=== PATIENT | female | born 1990 ===

== ENCOUNTER 2017-08-31 17:14 | Emergency (ER) | payer MEDICAID ==
[2017-08-31 17:14] VITALS: BMI 38.9
[2017-08-31 17:53] VITALS: BP 107/77; PULSE 60; RESP 16; TEMP 97.9; O2SAT 96
--- NOTE | 2017-08-31 18:56 | ED PDOC ---
Arrival/HPI - General Chief Complaint: Lower Extremity Problem/Injury Time Seen by Provider: 08/31/17 18:30 Historian: Patient - History of Present Illness Time/Duration: Other (3 days) Symptom Onset: Sudden Symptom Course: Improving Severity Level: Severe Associated Symptoms (Text): 08/31/17 18:53 Patient reports that 3 days prior to arrival she was making a plate of Thanksgiving leftovers when her arms (both) suddenly became weak and she dropped the plate to the floor. Her legs (both) then became weak and she fell to the floor. She is unclear how long this lasted floor. She denies any injury or trauma. She reports that her boyfriend was staying with her for the last 3 days and she did not want to leave him and that is why she came to the hospital today. Symptoms have not recurred. No headache dizziness or lightheadedness. No numbness tingling or paresthesias. She does not feel weak at this time. She has no pain. No chest pain or palpitations. Patient is mentally challenged. She denies any depression. Denies suicidal or homicidal ideation. No fever or chills. This has never occurred previously. Past Medical History - Past History Past History: No Previous - Infectious Disease Hx of Infectious Diseases: None - Tetanus Immunization Tetanus Immunization: Unknown - Past Medical History Past Medical History: No Previous - Cardiac Hx Cardiac Disorders: No - Pulmonary Hx Respiratory Disorders: No - Neurological Hx Neurological Disorder: Yes Other/Comment: cerebral palsy - HEENT Hx HEENT Disorder: No - Renal Hx Renal Disorder: No - Endocrine/Metabolic Hx Endocrine Disorders: No - Hematological/Oncological Hx Blood Disorders: No - Integumentary Hx Dermatological Disorder: No - Musculoskeletal/Rheumatological Hx Musculoskeletal Disorders: No - Gastrointestinal Hx Gastrointestinal Disorders: Yes Hx Gall Bladder Disease: Yes (Gallstones) - Genitourinary/Gynecological Hx Genitourinary Disorders: No - Psychiatric Hx Depression: Yes Hx Substance Use: No - Past Surgical History Past Surgical History: No Previous - Surgical History Hx Cholecystectomy: Yes Hx Dilation and Curettage: Yes - Anesthesia Hx Anesthesia: Yes Hx Anesthesia Reactions: No Hx Malignant Hyperthermia: No - Suicidal Assessment Feels Threatened In Home Enviroment: No Family/Social History - Physician Review Nursing Documentation Reviewed: Yes Family/Social History: Unknown Family HX Smoking Status: Light Smoker < 10 Cigarettes Daily Hx Alcohol Use: Yes (occasionally) Hx Substance Use: No Hx Substance Use Treatment: No Allergies/Home Meds Allergies/Adverse Reactions: Allergies No Known Allergies Allergy (Verified 08/31/17 17:53) Home Medications: Home Meds Medication Instructions Recorded Confirmed No Known Home Med 08/31/17 08/31/17 Review of Systems - Physician Review All systems were reviewed & negative as marked: Yes - Review of Systems Constitutional: Normal Respiratory: Normal Cardiovascular: Normal Gastrointestinal: Normal Genitourinary Female: Normal Neurological: Normal. absent: Headache, Dizziness, Focal Weakness, Gait Changes , Speech Changes, Facial Droop, Disequilibrium, Seizure Physical Exam Vital Signs Temp Pulse Resp BP Pulse Ox 08/31/17 17:48 97.9 F 60 16 107/77 96 Temperature: Afebrile Blood Pressure: Normal Pulse: Regular Respiratory Rate: Normal Appearance: Positive for: Well-Appearing, Non-Toxic, Comfortable, Other (Obese) Pain Distress: None Mental Status: Positive for: Alert and Oriented X 3 - Systems Exam Head: Present: Atraumatic, Normocephalic Pupils: Present: PERRL Extroacular Muscles: Present: EOMI Conjunctiva: Present: Normal Respiratory/Chest: Present: Clear to Auscultation, Good Air Exchange. No: Respiratory Distress, Accessory Muscle Use Cardiovascular: Present: Regular Rate and Rhythm, Normal S1, S2. No: Murmurs Abdomen: Present: Normal Bowel Sounds. No: Tenderness, Distention, Peritoneal Signs Upper Extremity: Present: Normal Inspection. No: Cyanosis, Edema Lower Extremity: Present: Normal Inspection. No: Edema Neurological: Present: GCS=15, CN II-XII Intact, Speech Normal, Motor Func Grossly Intact, Normal Sensory Function, Normal Cerebellar Funct, Gait Normal Skin: Present: Warm, Dry, Normal Color. No: Rashes Psychiatric: Present: Alert, Oriented x 3, Normal Insight, Normal Concentration Medical Decision Making ED Course and Treatment: 08/31/17 18:58 Discussed in detail with patient that she should follow-up with her PMD for these symptoms and follow up in the emergency department immediately if they recur. Disposition/Present on Arrival - Present on Arrival Any Indicators Present on Arrival: No History of DVT/PE: No History of Uncontrolled Diabetes: No Urinary Catheter: No History of Decub. Ulcer: No History Surgical Site Infection Following: None - Disposition Have Diagnosis and Disposition been Completed?: Yes Diagnosis: Weakness Disposition: HOME/ ROUTINE Disposition Time: 18:58 Patient Plan: Discharge Condition: GOOD Discharge Instructions (ExitCare): Weakness (ED) Referrals: Sheryl Slater MD [Primary Care Provider] - Follow up with primary Forms: [employer] (Bermudian)
== END 2017-08-31 19:16 | disposition home or self-care (01) ==
LOC: ED 17:14
DX: R53.1 Weakness (principal); F17.210 Nicotine dependence, cigarettes, uncomplicated

== ENCOUNTER 2018-05-24 18:39 | Emergency (ER) | payer MEDICAID ==
[2018-05-24 18:40] VITALS: BMI 38.9
[2018-05-24 20:28] VITALS: TEMP 98.3
--- NOTE | 2018-05-24 21:17 | ED PDOC ---
Arrival/HPI - General Chief Complaint: Lower Extremity Problem/Injury Time Seen by Provider: 05/24/18 20:41 Historian: Patient - History of Present Illness Narrative History of Present Illness (Text): 05/24/18 20:40 A 27 year old female, whose past medical history includes cerebral palsy , presents to the emergency department complaining of headache and left leg numbness for the past few days. Patient reports associated back pain, pain on back of left knee upon movement and numbness to left leg when standing . Patient denies any fever, chills, chest pain, shortness of breath, nausea, vomiting, diarrhea, urinary symptoms, back pain, neck pain, dizziness, or any other complaints. Time/Duration: Other (past few days) Symptom Onset: Gradual Symptom Course: Unchanged Activities at Onset: Light Context: Home Past Medical History - Provider Review Nursing Documentation Reviewed: Yes - Past History Past History: No Previous - Infectious Disease Hx of Infectious Diseases: None - Tetanus Immunization Tetanus Immunization: Unknown - Past Medical History Past Medical History: No Previous - Cardiac Hx Cardiac Disorders: No - Pulmonary Hx Respiratory Disorders: No - Neurological Hx Neurological Disorder: Yes Other/Comment: cerebral palsy - HEENT Hx HEENT Disorder: No - Renal Hx Renal Disorder: No - Endocrine/Metabolic Hx Endocrine Disorders: No - Hematological/Oncological Hx Blood Disorders: No - Integumentary Hx Dermatological Disorder: No - Musculoskeletal/Rheumatological Hx Musculoskeletal Disorders: No - Gastrointestinal Hx Gastrointestinal Disorders: Yes Hx Gall Bladder Disease: Yes (Gallstones) - Genitourinary/Gynecological Hx Genitourinary Disorders: No - Psychiatric Hx Psychophysiologic Disorder: Yes Hx Depression: Yes Hx Substance Use: No - Past Surgical History Past Surgical History: No Previous - Surgical History Hx Cholecystectomy: Yes Hx Dilation and Curettage: Yes - Anesthesia Hx Anesthesia: Yes Hx Anesthesia Reactions: No Hx Malignant Hyperthermia: No - Suicidal Assessment Feels Threatened In Home Enviroment: No Family/Social History - Physician Review Nursing Documentation Reviewed: Yes Family/Social History: Unknown Family HX Smoking Status: Light Smoker < 10 Cigarettes Daily Hx Alcohol Use: Yes Frequency of alcohol use: Socially Hx Substance Use: No Hx Substance Use Treatment: No Allergies/Home Meds Allergies/Adverse Reactions: Allergies No Known Allergies Allergy (Verified 05/24/18 19:44) Home Medications: Home Meds Medication Instructions Recorded Confirmed No Known Home Med 08/31/17 05/24/18 Review of Systems - Physician Review All systems were reviewed & negative as marked: Yes - Review of Systems Constitutional: absent: Fevers, Night Sweats Respiratory: absent: SOB Cardiovascular: absent: Chest Pain Gastrointestinal: absent: Diarrhea, Nausea, Vomiting Genitourinary Female: absent: Urine Output Changes Neurological: Headache, Other (numbness in let leg). absent: Normal, Dizziness , Focal Weakness, Gait Changes, Speech Changes, Facial Droop, Disequilibrium, Seizure Physical Exam Vital Signs Reviewed: Yes Vital Signs Temp Pulse Resp BP Pulse Ox 05/24/18 19:44 98.3 F 52 L 16 106/72 97 Temperature: Afebrile Blood Pressure: Normal Pulse: Bradycardic Respiratory Rate: Normal Appearance: Positive for: Well-Appearing, Non-Toxic, Comfortable Pain Distress: None Mental Status: Positive for: Alert and Oriented X 3 - Systems Exam Head: Present: Atraumatic, Normocephalic Pupils: Present: PERRL Extroacular Muscles: Present: EOMI Conjunctiva: Present: Normal Mouth: Present: Moist Mucous Membranes Neck: Present: Normal Range of Motion Respiratory/Chest: Present: Clear to Auscultation, Good Air Exchange. No: Respiratory Distress, Accessory Muscle Use Cardiovascular: Present: Regular Rate and Rhythm, Normal S1, S2. No: Murmurs Abdomen: No: Tenderness, Distention, Peritoneal Signs Back: Present: Normal Inspection Upper Extremity: Present: Normal Inspection. No: Cyanosis, Edema Lower Extremity: Present: Normal Inspection. No: Edema Neurological: Present: GCS=15, CN II-XII Intact, Speech Normal Skin: Present: Warm, Dry, Normal Color. No: Rashes Psychiatric: Present: Alert, Oriented x 3, Normal Insight, Normal Concentration Medical Decision Making ED Course and Treatment: 05/24/18 20:49 Impression: 27 year old female presenting to the emergency department complaining of headache and left leg numbness. Plan: -- Head CT without contrast -- Tylenol -- POC Urine test -- LS Spine OBL >18 X-Ray -- Reassess and disposition Prior Visits: Notes and results from previous visits were reviewed. Progress Notes: 05/24/18 22:22 CT Head reviewed, shows: IMPRESSION: No acute findings. 05/24/18 22:30 patient was seen for low back pain and intermittent weakness of the left leg. on physcial exam there are no deficits including normal sensation, motor 5/5 in bilateral lower extremities, patient is able to ambulate. i have discussed with the patient the importance of follow up with pcp for eventual mri of the lumbar spine. patient states she has the capability of see pcp for appropriate follow up. Patient's headache imrpoved after analgesics. CT of the head was performed to rule out overt intracranial lesion. Patient was not able to fully elaborate the character of her headache but she did not exhibit acute signs of serious illness such as meningismus, acute max onset headache to suggest SAH, trauma or fever. 05/24/18 22:35 - RAD Interpretation Narrative RAD Interpretations (Text): 05/24/18 22:29 xr l spine my read: no overt fracture of the visualized vertebral bodies Radiology Orders: 05/24/18 20:41 HEAD W/O CONTRAST [CT] Stat 05/24/18 20:43 LS SPINE WITH OBL > 18 YRS OLD [RAD] Stat Amplifier Mechanic: ED Physician - Medication Orders Current Medication Orders: Discontinued Medications Acetaminophen (Tylenol 325mg Tab) 975 mg PO STAT STA Stop: 05/24/18 20:43 Last Admin: 05/24/18 21:31 Dose: 975 mg MAR Pain/Vitals Document 05/24/18 21:31 HI (Rec: 05/24/18 21:33 HI [id number]) Pain Reassessment Is This A Pain ReAssessment? No Sleep Is patient sleeping during reassessment? No Presence of Pain Presence of Pain Yes Pain Scale Used Pain Scale Used Numeric Location Pain Location Body Resident Physician In Radiology - Scribe Statement The provider has reviewed the documentation as recorded by the Mary Crowe All medical record entries made by the Haleyibrgegg were at my direction and personally dictated by me. I have reviewed the chart and agree that the record accurately reflects my personal performance of the history, physical exam, medical decision making, and the department course for this patient. I have also personally directed, reviewed, and agree with the discharge instructions and disposition.\ Disposition/Present on Arrival - Present on Arrival Any Indicators Present on Arrival: No History of DVT/PE: No History of Uncontrolled Diabetes: No Urinary Catheter: No History of Decub. Ulcer: No History Surgical Site Infection Following: None - Disposition Have Diagnosis and Disposition been Completed?: Yes Diagnosis: Headache, Radiculopathy of lumbosacral region Disposition: HOME/ ROUTINE Disposition Time: 22:38 Patient Plan: Discharge Condition: STABLE Discharge Instructions (ExitCare): Headache, Adult, Radiculopathy Print Language: THAI Additional Instructions: Follow up with your primary care doctor for further evaluation. You may need to see a neurologist for follow up of the frequent headaches. Return for any new or worsening symptoms. MELONIE ASKEW, thank you for letting us take care of you today. Your provider was Dr. Tanvir Luciano and you were treated for headache and back pain. The emergency medical care you received today was directed at your acute symptoms. If you were prescribed any medication, please fill it and take as directed. It may take several days for your symptoms to resolve. Return to the Emergency Department if your symptoms worsen, do not improve, or if you have any other problems. Please contact your doctor or call one of the physicians/clinics you have been referred to that are listed on the Patient Visit Information form that is included in your discharge packet. Bring any paperwork you were given at discharge with you along with any medications you are taking to your follow up visit. Our treatment cannot replace ongoing medical care by a primary care provider outside of the emergency department. Thank you for allowing the [facility] team to be part of your care today. If you had an X-Ray or CT scan: A Radiologist will review the ED reading if any change in treatment is needed we will contact you. If you had a blood, urine, or wound culture: It will take several days for the results, if any change in treatment is needed we will contact you. If you had an STI test: It will take 48 hours for the results. Please call after 1 week if you have not heard back. Referrals: Jaden Macario MD [Staff Provider] - Follow up with primary Forms: [employer] (Portuguese)
[2018-05-24 23:01] VITALS: BP 136/88; PULSE 62; RESP 18; O2SAT 100
--- NOTE | 2018-05-25 08:16 | CT ---
Date of service: 05/24/2018 PROCEDURE: CT HEAD WITHOUT CONTRAST. HISTORY: headache, weakness COMPARISON: None available. TECHNIQUE: Axial computed tomography images were obtained through the head/brain without intravenous contrast. Radiation dose: Total exam DLP = 1035 mGy-cm. This CT exam was performed using one or more of the following dose reduction techniques: Automated exposure control, adjustment of the mA and/or kV according to patient size, and/or use of iterative reconstruction technique. FINDINGS: HEMORRHAGE: No intracranial hemorrhage. BRAIN: No mass effect or edema. No atrophy or chronic microvascular ischemic changes. VENTRICLES: Unremarkable. No hydrocephalus. CALVARIUM: Unremarkable. PARANASAL SINUSES: Unremarkable as visualized. No significant inflammatory changes. MASTOID AIR CELLS: Unremarkable as visualized. No inflammatory changes. OTHER FINDINGS: The report concurs with the preliminary [facility] report IMPRESSION: No acute findings
--- NOTE | 2018-05-25 08:50 | RAD ---
Date of service: 05/24/2018 PROCEDURE: Radiographs of the Lumbar Spine. HISTORY: Back pain COMPARISON: No prior. FINDINGS: BONES: There is normal alignment of the lumbar vertebral bodies. There is normal lumbar lordosis. There is no acute fracture, spondylolysis or spondylolisthesis. Bone mineralization is normal. DISC SPACES: The disc heights are maintained. There is a Schmorl's node at the inferior endplate of L4 vertebral body. Mild facet arthropathy at L4-5 and L5-S1. OTHER FINDINGS: There are no pathologic soft tissue calcifications. Both sacroiliac joints are normal. IMPRESSION: No acute fracture, spondylolysis or spondylolisthesis.
== END 2018-05-24 23:09 | disposition home or self-care (01) ==
LOC: ED 18:39
DX: R51 Headache (principal); M54.17 Radiculopathy, lumbosacral region; F17.210 Nicotine dependence, cigarettes, uncomplicated; G80.9 Cerebral palsy, unspecified